=== PATIENT | female | born 1950 | race Caucasian/White ===

== ENCOUNTER 2018-12-04 11:52 | Emergency (ER) | payer MEDICARE ==
[2018-12-04 12:31] VITALS: BP 134/78
--- NOTE | 2018-12-04 12:39 | UC ---
Lower Extremity/Ankle HPI - HPI Summary HPI Summary: 68 year old female presents with 4 day history of right foot pain. No known injury. Describes as ache. Worsens with weightbearing and ascending stairs. Improves with OTC naproxen and ice. Associated with mild swelling, Denies fever , chills, erythema, ecchymosis, numbness or tingling. - History of Current Complaint Chief Complaint: UCLowerExtremity Stated Complaint: RIGHT FOOT INJURY Time Seen by Provider: 12/04/18 12:26 Hx Obtained From: Patient Pain Intensity: 3 - Allergies/Home Medications Allergies/Adverse Reactions: Allergies Allergy/AdvReac Type Severity Reaction Status Date / Time bacitracin Allergy Severe Rash Verified 12/04/18 12:38 [From Neosporin ([id number])] neomycin Allergy Severe Rash Verified 12/04/18 12:38 [From Neosporin ([id number])] polymyxin B Allergy Severe Rash Verified 12/04/18 12:38 [From Neosporin ([id number])] aluminum Allergy Intermediate Rash Verified 12/04/18 12:39 silver, gold Allergy Rash Uncoded 12/04/18 12:22 soap, shampoo ingredients Allergy Rash Uncoded 12/04/18 12:22 Home Medications: Home Medications Calcium Citrate TAB* [Citracal TAB*] 200 mg PO DAILY 12/04/18 [History Confirmed 12/04/18] Cholecalciferol TAB* [Vitamin D TAB*] 2,000 units PO DAILY 12/04/18 [History Confirmed 12/04/18] Naproxen Sodium [Aleve] 220 mg PO BID PRN 12/04/18 [History Confirmed 12/04/18] Pantoprazole Sodium 20 mg PO DAILY PRN 12/04/18 [History Confirmed 12/04/18] PMH/Surg Hx/FS Hx/Imm Hx GI/ History: Gastroesophageal Reflux - Surgical History Surgical History: Yes Surgery Procedure, Year, and Place: partial hysterectomy, gallbladder removed, prolapsed bladder repair - Family History Known Family History: Positive: Non-Contributory - Social History Occupation: Retired Lives: Alone Alcohol Use: Occasionally Substance Use Type: None Smoking Status (MU): Former Smoker Review of Systems All Other Systems Reviewed And Are Negative: Yes Constitutional: Negative: Fever, Chills Skin: Negative: Rash, Bruising Respiratory: Positive: Negative Cardiovascular: Positive: Negative Gastrointestinal: Positive: Negative Genitourinary: Positive: Negative Motor: Negative: Weakness Neurovascular: Negative: Decreased Sensation Musculoskeletal: Positive: Other: - See HPI Neurological: Positive: Negative Is Patient Immunocompromised?: No Physical Exam - Summary Physical Exam Summary: GENERAL APPEARANCE: Well developed, well nourished, alert and cooperative, and appears to be in no acute distress. CARDIAC: Normal S1 and S2. No S3, S4 or murmurs. Rhythm is regular. There is no peripheral edema, cyanosis or pallor. Extremities are warm and well perfused. Capillary refill is less than 2 seconds. Peripheral pulses intact. LUNGS: Clear to auscultation without rales, rhonchi, wheezing or diminished breath sounds. ABDOMEN: Positive bowel sounds. Soft, nondistended, nontender. No guarding or rebound. No masses or hepatosplenomegally. MUSKULOSKELETAL: Mild tenderness to dorsal and plantar right foot over the 2nd matatarsal without gross deformity, erythema, ecchymosis, or lesions. Limping gait. NEUROLOGICAL: Strength and sensation symmetric intact. SKIN: Skin normal color, texture and turgor with no lesions or eruptions. Triage Information Reviewed: Yes Vital Signs: Initial Vital Signs Temp 98.2 F 12/04/18 12:26 Pulse 79 12/04/18 12:26 Resp 20 12/04/18 12:26 BP 134/78 12/04/18 12:26 Pulse Ox 100 12/04/18 12:26 Vital Signs Reviewed: Yes Diagnostics - Radiology No standard instances Radiology Interpretation Completed By: Radiologist Summary of Radiographic Findings: Patient Name: ATIF RIOS . Ordering Physician: Elias Naylor NP Acct.#: [id number]. : 1950 Age: 68 Sex: F Location: [facility]. Exam Date: 124 ADM Status: REG ER. Order Information: FOOT RIGHT 3+ VWS. Accession Number: [id number]. CPT: 79700. Indication: Right foot pain. 3 views of the right foot demonstrates no fracture of the degenerative changes of the. first metatarsal phalangeal joint is noted. No other bone or joint abnormality is noted. IMPRESSION: Degenerative changes of the first metatarsophalangeal joint without definite. fracture. Lower Extremity Course/Dx - Course Course Of Treatment: 68 year old female presents with 4 day history of right foot pain. No known injury. Describes as ache. Worsens with weightbearing and ascending stairs. Improves with OTC naproxen and ice. Associated with mild swelling, Denies fever, chills, erythema, ecchymosis, numbness or tingling. Afebrile. VSS. Exam reveals an older adult female in no acute distress. Mild tenderness with palpation to dorsal and plantar foot over the 2nd metarsal without gross deformity, erythema, ecchymosis, edema, or lesions noted. X-ray showed no acute fracture or dislocation. Will treat conservatively for mild foot sprain using OTC NSAIDs and RICE. She is to follow up with her PCP in 7 days if no improvement in symptoms. Warning symptoms reviewed with patient. Verbalizes understanding and agrees with POC. - Differential Dx/Diagnosis Differential Diagnosis/HQI/PQRI: Arthritis, Contusion, Dislocation, Fracture ( Closed), Gout, Sprain, Strain, Tendonitis Provider Diagnosis: Right foot sprain Discharge - Sign-Out/Discharge Documenting (check all that apply): Patient Departure All imaging exams completed and their final reports reviewed: Yes - Discharge Plan Condition: Stable Disposition: HOME Patient Education Materials: Foot Sprain (ED) Referrals: Cecil Weir MD [Primary Care Provider] - 7 Days (If no improvement.) Additional Instructions: The x-ray of your foot performed in the clinic today showed some degenerative changes consistent with arthritis but no evidence of a fracture. I suspect that your pain may be related to the arthritic changes but may be from a mild sprain of the foot. Rest the foot as much as possible. You may continue to walk and bear weight as tolerated. Apply ice to the affected area for 15-20 minutes 4 times a day to help with pain and swelling. Keep the foot elevated while sitting to reduce swelling. Use an over the counter anti-inflammatory such as ibuprofen (Advil, Motrin) or naproxen (Aleve) according to directions for pain. Follow up with your primary care provider in 7 days if symptoms persist. Seek immediate medical attention in the emergency room if you develop fever greater than 100.5 F, have severe pain not managed with pain medication, increased redness or swelling, pain and swelling in your calf, shortness of breath, chest pain, or any worsening of symptoms. - Billing Disposition and Condition Condition: STABLE Disposition: Home
== END 2018-12-04 13:22 | disposition home or self-care (01) ==
LOC: UCCORT 11:52
DX: S93.601A Unspecified sprain of right foot, initial encounter (principal); X58.XXXA Exposure to other specified factors, initial encounter; Y92.9 Unspecified place or not applicable; K21.9 Gastro-esophageal reflux disease without esophagitis; Z88.3 Allergy status to other anti-infective agents; Z91.048 Other nonmedicinal substance allergy status; Z87.891 Personal history of nicotine dependence
CPT/HCPCS: 99211; G0463